=== PATIENT | male | born 1995 | race Caucasian/White ===

== ENCOUNTER 2022-02-06 22:19 | Emergency (ER) | payer SELFPAY ==
[~2022-02-06] VITALS: Ht 182.9 cm; Wt 99.8 kg
--- NOTE | 2022-02-06 22:29 | NUR ---
Dr Kim at bedside, MSE in progress.
[2022-02-06] MEDS ORDERED: SERT25TA PO (22:36)
[2022-02-06] MEDS ORDERED: IBUPROFEN 600 MG TABLET ONE (22:43)
[2022-02-06] MEDS ORDERED: IBUPROFEN 600 MG TABLET PO ONE (22:45)
[2022-02-06] MEDS ORDERED: HYDR-4209 PO (23:03)
[2022-02-06] MEDS ORDERED: ONDA4TAB5 PO (23:03)
[2022-02-06] MEDS ORDERED: CYCL10TA9 PO (23:03)
[2022-02-07] MEDS ORDERED: CYCLOBENZAPRINE HCL 10 MG TABLET ONE (00:12)
[2022-02-07] MEDS ORDERED: CYCLOBENZAPRINE HCL 10 MG TABLET PO ONE (00:15)
--- NOTE | 2022-02-07 00:18 | NUR ---
Patient discharged to home in stable condition. Written and verbal after care instructions given. Patient verbalizes understanding of instructions. Stressed follow up or return to ER for worsening s/s. pt ambulated with steady gait. denies pain no SOB. no chest pain. AOx4
[2022-02-07 00:20] VITALS: BP 124/80
== END 2022-02-07 00:21 | disposition home or self-care (01) ==
LOC: ER 22:25
DX: M25.511 Pain in right shoulder (principal); M54.9 Dorsalgia, unspecified; F17.210 Nicotine dependence, cigarettes, uncomplicated
CPT/HCPCS: 72110; 73030; A4663